=== PATIENT | female | born 1960 | race Caucasian/White ===

== ENCOUNTER 2017-03-02 13:35 | Emergency (ER) | payer OTHER ==
[~2017-03-02] VITALS: Ht 162.6 cm; Wt 93.1 kg
[~2017-03-02 13:35] MED LIST: ASACOL HD800 MG PO; ATARAX,VISTARIL25 MG PO; ATENOLOL50 MG PO; CLEOCIN300 MG PO; FLEXERIL10 MG PO; HYDROCHLOROTH12.5 M3 PO; LISINOPRIL10 MG PO; LORTAB 5-325 M1 EACH PO; PRAVACHOL10 MG PO; PREDNISONE10 MG PO; TENORMIN25 MG PO; ZANTAC150 MG PO
[2017-03-02] MEDS ORDERED: MOTRIN800 MG PO (15:09)
[2017-03-02 15:18] VITALS: BP 180/98
== END 2017-03-02 16:03 | disposition home or self-care (01) ==
LOC: EME 13:35
DX: M25.521 Pain in right elbow (principal); Z91.81 History of falling
CPT/HCPCS: 73080; 99281; 99284

== ENCOUNTER → 2017-07-28 | Outpatient (CLI) | payer OTHER ==
[~2017-07-28] MED LIST changes: +MOTRIN800 MG PO
== END | disposition home or self-care (01) ==
LOC: CDC 14:25
DX: Z01.810 Encounter for preprocedural cardiovascular examination (principal); G56.01 Carpal tunnel syndrome, right upper limb; M65.311 Trigger thumb, right thumb; B07.9 Viral wart, unspecified; R94.31 Abnormal electrocardiogram [ECG] [EKG]
CPT/HCPCS: 93000